=== PATIENT | male | born 1955 ===

== ENCOUNTER 2025-06-20 08:00 | Inpatient (IN) | payer OTHER ==
[~2025-06-20] VITALS: Ht 170.2 cm; Wt 77.1 kg
[2025-06-20] MEDS ORDERED: ZESTRIL10 M1 PO (09:52)
[2025-06-20] MEDS ORDERED: METFORMIN HCL500 M4 PO (09:53)
[2025-06-20] MEDS ORDERED: BISOPROLOL FUM2.5 MG PO (09:55)
[2025-06-20 09:59] VITALS: BP 140/82
[2025-06-20 10:00] VITALS: BP 138/75
[2025-06-20 10:41] LABS: BASO % 0.6 % (0.1-1.2); EOS # 0.08 (0.04-0.54); EOS % 0.9 % (0.7-7.0); LYMPH # 1.61 (1.18-3.74); LYMPH % 17.3 % (19.3-53.1); MEAN PLATELET VOLUME 10.30 fl (9.4-12.4); MONO # 0.85 (0.24-0.82); MONO % 9.1 % (4.7-12.5); NEUT # 6.67 (1.56-6.13); NEUT % 71.5 % (34.0-71.1); RED CELL DISTRIBUTION WIDTH 15.4 % (11.6-14.4)
[2025-06-20 10:48] LABS: URINE APPEARANCE Clear; URINE BILIRRUBIN Negative (NEGATIVE); URINE BLOOD Moderate; URINE COLOR Yellow; URINE GLUCOSE Negative (NEGATIVE); URINE KETONE Negative (NEGATIVE); URINE LEUKOCYTE Negative; URINE NITRATE Negative; URINE PROTEIN Trace (NEGATIVE); URINE UROBILINOGEN 0.2 E.U./dl
[2025-06-20 10:49] LABS: URINE BACTERIA 9.5 uL (0.0-1933); URINE EPITHELIAL CELLS 5.2 uL (0.0-38.8); URINE RBC 28.4 uL (0.0-20.8); URINE WBC 5.0 uL (0.0-23.2)
[2025-06-20 10:57] LABS: URINE CAST 0.29 uL (0.0-1.40)
[2025-06-20 11:20] LABS: BUN CREA RATIO 16.0 (7.0-25.0); CREATININE SERUM 0.93 mg/dL (0.70-1.30); GFR 80.8; GLUCOSE FASTING 136.0 mg/dL (65-100); INR 1.03; OSMOLALITY SERUM 284.0 MOSM/KG (275-295)
[2025-06-20 11:24] LABS: COVID-19 AG NEGATIVE (NEGATIVE)
[2025-06-27] MEDS ORDERED: ENOXAPARIN SODIUM 40 MG/0.4 ML SYRINGE SUBCUTANEO ONE (06:57)
[2025-06-27] MEDS ORDERED: CEFAZOLIN SODIUM 1,000 MG VIAL ONE (06:58)
[2025-06-27] MEDS ORDERED: SUGAMMADEX SODIUM 200 MG/2 ML VIAL IV ONE (09:06)
[2025-06-27] MEDS ORDERED: METHYLENE BLUE 50MG/10ML AMP IV ONE (09:55)
[2025-06-27] MEDS ORDERED: MANNITOL 0.2 GM/ML (500ML) IV.SOLN IV ONE (09:59)
[2025-06-27] MEDS ORDERED: BISOPROLOL-HCT1 EAC1 (11:21)
[2025-06-27] MEDS ORDERED: METFORMIN HCL500 M4 (11:21)
[2025-06-27] MEDS ORDERED: LISINOPRIL-HCT1 EAC1 (11:21)
[2025-06-27] MEDS ORDERED: ROSUVASTATIN CA40 MG (11:21)
[2025-06-27] MEDS ORDERED: HEMOSTATIC MATRIX WITH THROMBIN KIT TOP ONE (11:35)
[2025-06-27] MEDS ORDERED: BUPIVACAINE HCL/Mpf 0.5% 10ML VIAL ONE (12:37)
[2025-06-27] MEDS ORDERED: DEXTROSE 5 %-0.45 % SOD CHLORD 1,000 ML IV SCH (15:23)
[2025-06-27] MEDS ORDERED: DEXTROSE 50 % IN WATER 0.5 G/ML DISP.SYRIN IV PRN (15:30)
[2025-06-27] MEDS ORDERED: INSULIN LISPRO 1,000 UNIT/10 ML UNITS SUBCUTANEO PRN (15:30)
[2025-06-27] MEDS ORDERED: ENALAPRILAT DIHYDRATE 1.25 MG/ML VIAL IV PRN (15:30)
[2025-06-27] MEDS ORDERED: ONDANSETRON HCL 2 MG/ML VIAL IV SCH (17:00)
[2025-06-27] MEDS ORDERED: CEFAZOLIN SODIUM 1,000 MG VIAL IV SCH (17:00)
[2025-06-27] MEDS ORDERED: SIMETHICONE 125 MG CAPSULE PO SCH (17:00)
[2025-06-27] MEDS ORDERED: DOCUSATE SODIUM 100MG CAP PO SCH (17:00)
[2025-06-27] MEDS ORDERED: MORPHINE SULFATE 4 MG/ML CARTRIDGE IV PRN (17:45)
[2025-06-27 21:18] VITALS: BP 138/75; O2SAT 91
[2025-06-27] MEDS ORDERED: ACETAMINOPHEN WITH CODEINE 1 UDTAB TABLET PO PRN (22:00)
[2025-06-28 00:30] VITALS: BP 141/77; O2SAT 98
[2025-06-28 08:07] VITALS: BP 132/72; O2SAT 94
[2025-06-28 08:09] LABS: BASO % 0.1 % (0.1-1.2); EOS # 0.00 (0.04-0.54); EOS % 0.0 % (0.7-7.0); LYMPH # 1.32 (1.18-3.74); LYMPH % 7.7 % (19.3-53.1); MEAN PLATELET VOLUME 10.20 fl (9.4-12.4); MONO # 1.95 (0.24-0.82); MONO % 11.3 % (4.7-12.5); NEUT # 13.83 (1.56-6.13); NEUT % 80.3 % (34.0-71.1); RED CELL DISTRIBUTION WIDTH 15.1 % (11.6-14.4)
[2025-06-28 08:43] LABS: BUN CREA RATIO 13.0 (7.0-25.0); CREATININE SERUM 0.99 mg/dL (0.70-1.30); GFR 75.17; GLUCOSE FASTING 167.0 mg/dL (65-100); OSMOLALITY SERUM 280.0 MOSM/KG (275-295)
[2025-06-28] MEDS ORDERED: LISINOPRIL 20 MG TABLET PO SCH (09:00)
[2025-06-28] MEDS ORDERED: LEVALBUTEROL HCL 0.63 MG/3 ML SOLUTION IH SCH (13:00)
[2025-06-28 16:30] VITALS: BP 156/78; O2SAT 93
[2025-06-29 01:04] VITALS: BP 127/73; O2SAT 98
[2025-06-29 07:56] LABS: BASO % 0.2 % (0.1-1.2); EOS # 0.04 (0.04-0.54); EOS % 0.2 % (0.7-7.0); LYMPH # 1.61 (1.18-3.74); LYMPH % 9.6 % (19.3-53.1); MEAN PLATELET VOLUME 10.60 fl (9.4-12.4); MONO # 1.66 (0.24-0.82); MONO % 9.9 % (4.7-12.5); NEUT # 13.39 (1.56-6.13); NEUT % 79.6 % (34.0-71.1); RED CELL DISTRIBUTION WIDTH 15.2 % (11.6-14.4)
[2025-06-29 08:02] LABS: BUN CREA RATIO 12.0 (7.0-25.0); CREATININE SERUM 0.89 mg/dL (0.70-1.30); GFR 85.0; GLUCOSE FASTING 153.0 mg/dL (65-100); OSMOLALITY SERUM 278.0 MOSM/KG (275-295)
[2025-06-29 08:14] VITALS: BP 118/70; O2SAT 93
== END 2025-06-29 15:39 | disposition home or self-care (01) | DRG 658 ==
LOC: SURH 06-27 06:00 → O/R 06-27 06:00 → SURH 06-27 07:00
PROVIDERS: ADMIT Urology; ATTEND Urology
PROC: 4A033R1 Measurement of Arterial Saturation, Peripheral, Percutaneous Approach (ICD-10-PCS; 2025-06-27)
PROC: 0TT00ZZ Resection of Right Kidney, Open Approach (ICD-10-PCS; principal; 2025-06-27 07:00)
PROC: 3E0F7GC Introduction of Other Therapeutic Substance into Respiratory Tract, Via Natural or Artificial Opening (ICD-10-PCS; 2025-06-28)
DX: C64.1 Malignant neoplasm of right kidney, except renal pelvis (principal)